=== PATIENT | female | born 1970 | race Hispanic/Latino ===

== ENCOUNTER 2018-09-06 16:05 | Observation (INO) | payer MEDICAID ==
[~2018-09-06] VITALS: Ht 154.9 cm; Wt 81.1 kg
[2018-09-06 17:19] LABS: BASOPHILS % (AUTO) 1.7 % (0.0-5.0); HEMATOCRIT 36.7 % (36-48); LYMPHOCYTES % (AUTO) 29.8 % (21.0-51.0); MEAN CORPUSCULAR HEMOGLOBIN 31.2 pg (27.0-33.0); MEAN CORPUSCULAR VOLUME 91.9 fL (79-99); MONOCYTES % (AUTO) 6.5 % (3.0-13.0); PLATELET COUNT (AUTO) 231 K/uL (130-400); RED CELL DISTRIBUTION WIDTH 14.7 % (11.0-15.5); WHITE BLOOD COUNT (AUTO) 6.1 K/uL (4.8-10.8)
[2018-09-06 17:29] LABS: CREATININE 1.2 mg/dL (0.5-1.5)
[2018-09-06 17:31] LABS: PARTIAL THROMBOPLASTIN TIME 76.2 SEC (26.3-35.5)
[2018-09-06 17:40] LABS: ALBUMIN 4.2 g/dL (3.5-5.0); BILIRUBIN,TOTAL 0.8 mg/dL (0.2-1.0)
[2018-09-06 17:43] LABS: INR > 7.00 (0.85-1.15); PROTHROMBIN TIME > 63.0 SEC (9.6-11.6)
[2018-09-06] MEDS ORDERED: SODIUM CHLORIDE 0.9% 10 ML VIAL IVP PRN (21:00)
[2018-09-06] MEDS: PHYTONADIONE 10 MG/1 ML AMP SQ SCH (21:00)
[2018-09-06] MEDS ORDERED: PHYTONADIONE 10 MG/1 ML AMP ONE (22:48)
[2018-09-06 23:20] VITALS: BP 135/74
[2018-09-07] MEDS ORDERED: DIGO125T87 PO (00:57)
[2018-09-07] MEDS ORDERED: WARF-57 PO (00:57)
[2018-09-07] MEDS ORDERED: POTA-79 PO (00:57)
[2018-09-07] MEDS ORDERED: DIVA250T45 PO (00:57)
[2018-09-07] MEDS ORDERED: SPIR25TA6 PO (00:57)
[2018-09-07] MEDS ORDERED: METF-444 PO (00:57)
[2018-09-07] MEDS ORDERED: WARF2.5T85 PO (00:57)
[2018-09-07] MEDS ORDERED: PREG75 PO (00:57)
[2018-09-07] MEDS ORDERED: FURO40TA5 PO (00:57)
[2018-09-07] MEDS ORDERED: RANO10003 PO (00:57)
[2018-09-07] MEDS ORDERED: AMIT50TA3 PO (00:57)
[2018-09-07] MEDS ORDERED: CARV6.25 PO (00:57)
[2018-09-07] MEDS ORDERED: LEVO100T12 PO (00:57)
[2018-09-07] MEDS ORDERED: atorvastatin (00:57)
[2018-09-07] MEDS ORDERED: ALPR-410 PO (00:57)
[2018-09-07] MEDS ORDERED: LISI2.5T2 PO (00:57)
[2018-09-07 04:00] VITALS: BP 128/56
[2018-09-07 05:59] LABS: BASOPHILS % (AUTO) 0.2 % (0.0-5.0); EOSINOPHILS % (AUTO) 2.5 % (0.0-8.0); HEMATOCRIT 33.4 % (36-48); LYMPHOCYTES % (AUTO) 36.2 % (21.0-51.0); MEAN CORPUSCULAR HEMOGLOBIN 31.6 pg (27.0-33.0); MEAN CORPUSCULAR HGB CONC 34.6 g/dL (32.0-36.0); MEAN CORPUSCULAR VOLUME 91.1 fL (79-99); NEUTROPHILS % (AUTO) 51.1 % (40.0-77.0); PLATELET COUNT (AUTO) 198 K/uL (130-400); RED BLOOD CELL COUNT(AUTO) 3.66 MIL/uL (4.00-5.50); RED CELL DISTRIBUTION WIDTH 14.7 % (11.0-15.5)
[2018-09-07 06:13] LABS: PARTIAL THROMBOPLASTIN TIME 80.4 SEC (26.3-35.5)
[2018-09-07 07:30] VITALS: BP 119/61
[2018-09-07 07:52] LABS: PROTHROMBIN TIME > 63.0 SEC (9.6-11.6)
[2018-09-07 07:53] LABS: INR > 7.00 (0.85-1.15)
[2018-09-07 11:00] VITALS: BP 122/66
--- NOTE | 2018-09-07 11:33 | NUR ---
Nutrition Notification Patient with Iatrogenic coagulopathy, Warfarin medication. Patient with Heart Healthy diet. Patient stated dislike food served at breakfast time. Patient also reported feelings of nausea at time of visit. RN was notified. Patient did express hungry for lunch. Patient with warfarin medication. RD provided food and drug interaction as well as diet education. Patient verbalized understanding. Patient LBM 09/06/18. Patient monitored labs: Cl 99, GFR 51, Glu 154, Alb 4.2. RD to continue to monitor. Please notify RD as nutritional concerns arise. Thank you. Addendum: 09/07/18 at [address] Amended: Links added.
--- NOTE | 2018-09-07 11:37 | NUR ---
Diet Education RD provided Vitamin K Foods and Coumadin Diet education. Patient accepted handouts and education. Patient verbalized understanding. Patient with no questions at this time. RD to follow up. Addendum: 09/07/18 at [address] Amended: Links added.
--- NOTE | 2018-09-07 12:29 | NUR ---
INITIAL: Met with pt this am to discuss dcp. Pt lives alone, uses a rollator for ambulation. ADLs w assist. Pt has provider services 29hr/week. She has at home a chair, wc and bsc if needed. Per pt her sister provides transportation where needed. Pt mentions she feels safe and comfortable to return home at ar. CM to continue to follow and wait for Md recommendations. Addendum: 09/07/18 at 1231 by BRIAN HA Amended: Links added.
[2018-09-07 16:00] VITALS: BP 124/55
[2018-09-07 19:00] VITALS: BP 117/62
[2018-09-07] MEDS: PHYTONADIONE 10 MG/1 ML AMP SQ SCH (20:04)
[2018-09-08] VITALS: BP 129/68
[2018-09-08 04:00] VITALS: BP 125/65
[2018-09-08 05:57] LABS: INR 1.96 (0.85-1.15); PROTHROMBIN TIME 20.3 SEC (9.6-11.6)
[2018-09-08] MEDS ORDERED: WARF2.5T85 PO (06:53)
[2018-09-08 07:00] VITALS: BP 123/74
[2018-09-08] MEDS ORDERED: PREGABALIN 75 MG CAPSULE PO PRN (07:00)
[2018-09-08] MEDS ORDERED: LEVOTHYROXINE 100 MCG TABLET PO SCH (07:30)
[2018-09-08] MEDS ORDERED: AMITRIPTYLINE HCL 25 MG TABLET PO SCH (07:30)
[2018-09-08] MEDS ORDERED: METFORMIN HCL 500 MG TABLET PO SCH (08:00)
[2018-09-08] MEDS: POTASSIUM CHLORIDE 20 MEQ ERTAB PO SCH ×2 (08:49→12:11)
[2018-09-08] MEDS: PHYTONADIONE 10 MG/1 ML AMP SQ SCH (08:50)
[2018-09-08] MEDS ORDERED: RANOLAZINE 500 MG TAB.SR.12H PO SCH (09:00)
[2018-09-08] MEDS ORDERED: SPIRONOLACTONE 25 MG TAB PO SCH (09:00)
[2018-09-08] MEDS ORDERED: LISINOPRIL 2.5 MG TABLET PO SCH (09:00)
[2018-09-08] MEDS ORDERED: FUROSEMIDE 40 MG TABLET PO SCH (09:00)
[2018-09-08] MEDS ORDERED: DIGOXIN 125 MCG TABLET PO SCH (09:00)
[2018-09-08] MEDS ORDERED: CARVEDILOL 6.25 MG TABLET PO SCH (09:00)
[2018-09-08] MEDS ORDERED: DIVALPROEX SODIUM 250 MG TABLET.DR PO SCH (09:00)
[2018-09-08] MEDS ORDERED: ALPRAZOLAM 0.5 MG TABLET PO SCH (09:00)
[2018-09-08 11:00] VITALS: BP 117/67
--- NOTE | 2018-09-08 13:03 | NUR ---
PT D/C Pt d/c home safely, able to communicate appropriately, no deficit noted, educated on warfarin, ask to follow up with Dr. Trejo at the [facility] for her PT/INR lab values routinely, pt acknowledge and verbalized understanding, all questions and concerns addressed, IV taken out, no complication noted, pt escorted down the elevator and transport provided by family member.
[2018-09-08] MEDS ORDERED: WARFARIN SODIUM 2.5 MG TAB PO SCH (16:00)
== END 2018-09-08 13:05 | disposition home or self-care (01) ==
LOC: EDH 16:05 → EDHIP 16:06 → 3BH 21:50
PROVIDERS: ADMIT Internal Medicine; ATTEND Internal Medicine
DX: D68.9 Coagulation defect, unspecified (principal); T45.515A Adverse effect of anticoagulants, initial encounter; G43.909 Migraine, unspecified, not intractable, without status migrainosus; E03.9 Hypothyroidism, unspecified; I10 Essential (primary) hypertension; I25.10 Atherosclerotic heart disease of native coronary artery without angina pectoris; I25.5 Ischemic cardiomyopathy; E11.9 Type 2 diabetes mellitus without complications; E78.5 Hyperlipidemia, unspecified; Y92.89 Other specified places as the place of occurrence of the external cause; Z86.73 Personal history of transient ischemic attack (TIA), and cerebral infarction without residual deficits; Z95.1 Presence of aortocoronary bypass graft; Z79.01 Long term (current) use of anticoagulants
CPT/HCPCS: 36415 ×3; 70450; 80053; 82550; 82948 ×2; 84484; 85025 ×2; 85610 ×3; 85730 ×3; 93005; 97039 ×4; 97116; 97161; 99284; G0378 ×45; G8978; G8979; G8981; G8982; J3430 ×2

== ENCOUNTER → 2023-08-02 | Outpatient (CLI) | payer MEDICAID ==
[~2023-08-02] MED LIST: ALPR-410 PO; AMIT50TA3 PO; CARV6.25 PO; DIGO125T71 PO; DIVA250T45 PO; FURO40TA5 PO; LEVO100T12 PO; LISI2.5T13 PO; METF-444 PO; POTA-364 PO; PREG75 PO; RANO10003 PO; SPIR25TA6 PO; WARF2.5T85 PO; atorvastatin
== END | disposition home or self-care (01) ==
LOC: SHCH 08:24
PROVIDERS: ATTEND Internal Medicine Cardiovascular Disease
DX: I07.1 Rheumatic tricuspid insufficiency (principal); I11.9 Hypertensive heart disease without heart failure; I25.10 Atherosclerotic heart disease of native coronary artery without angina pectoris; E78.5 Hyperlipidemia, unspecified; Z95.1 Presence of aortocoronary bypass graft; Z95.2 Presence of prosthetic heart valve; Z95.810 Presence of automatic (implantable) cardiac defibrillator
CPT/HCPCS: 93306

== ENCOUNTER → 2023-11-26 | Outpatient (CLI) | payer MEDICAID ==
[2023-11-26 16:27] LABS: INR 1.7 (0.85-1.15); PROTHROMBIN TIME 19.3 SEC (9.6-11.6)
== END | disposition home or self-care (01) ==
LOC: LAB 13:42
PROVIDERS: ATTEND Internal Medicine Cardiovascular Disease
DX: Z79.01 Long term (current) use of anticoagulants (principal); Z79.02 Long term (current) use of antithrombotics/antiplatelets
CPT/HCPCS: 36415; 85610

== ENCOUNTER → 2023-12-03 | Outpatient (CLI) | payer MEDICAID ==
[2023-12-03 17:49] LABS: INR 2.1 (0.85-1.15); PROTHROMBIN TIME 21.3 SEC (9.6-11.6)
== END | disposition home or self-care (01) ==
LOC: LAB 11:51
PROVIDERS: ATTEND Internal Medicine Cardiovascular Disease
DX: Z79.01 Long term (current) use of anticoagulants (principal)
CPT/HCPCS: 36415; 85610

== ENCOUNTER → 2023-12-06 | Outpatient (CLI) | payer MEDICAID ==
[2023-12-06 12:23] LABS: INR 1.97 (0.85-1.15); PROTHROMBIN TIME 20.2 SEC (9.6-11.6)
== END | disposition home or self-care (01) ==
LOC: LAB 09:30
PROVIDERS: ATTEND Internal Medicine Cardiovascular Disease
DX: I48.0 Paroxysmal atrial fibrillation (principal); Z95.2 Presence of prosthetic heart valve
CPT/HCPCS: 36415; 85610

== ENCOUNTER → 2024-01-04 | Outpatient (CLI) | payer MEDICAID | END | disposition home or self-care (01) | LOC: SHCH 13:34 | PROVIDERS: ATTEND Internal Medicine Cardiovascular Disease | DX: I70.203 Unspecified atherosclerosis of native arteries of extremities, bilateral legs (principal); I87.2 Venous insufficiency (chronic) (peripheral); I87.1 Compression of vein | CPT/HCPCS: 93925; 93970 ==

== ENCOUNTER → 2024-06-17 | Outpatient (CLI) | payer MEDICAID ==
--- NOTE | 2024-06-17 09:38 | HMCIMG ---
US ABDOMINAL COMPLETE HISTORY: Pericolic COMPARISON: None TECHNIQUE: Multiple transverse and longitudinal ultrasound images of the abdomen were obtained. FINDINGS: Abdominal aorta and inferior vena cava are unremarkable. The visualized portion of the pancreas is within normal limits. Liver measures 19 cm. Liver is echogenic consistent with liver parenchymal disease. No gallstone is seen. Common duct measures 5 mm. No evidence of gallbladder wall thickening is seen. Both kidneys are seen. Right kidney measures 12 x 4.4 x 4.1 cm. Left kidney measures 11.3 x 5 x 4.5 cm. No hydronephrosis is seen of the both kidneys. The spleen is grossly unremarkable. IMPRESSION: 1. No gallstone or ductal dilatation is seen. 2. No hydronephrosis is seen.
== END | disposition home or self-care (01) ==
LOC: RAH 08:54
PROVIDERS: ATTEND Internal Medicine
DX: K80.50 Calculus of bile duct without cholangitis or cholecystitis without obstruction (principal)
CPT/HCPCS: 76700

== ENCOUNTER → 2024-08-12 | Outpatient (CLI) | payer MEDICAID ==
[~2024-08-12] MED LIST changes: +ATOR40TA69 PO; +BUSP5TAB3 PO; +CELE-125 PO; +CETI10TA87 PO; +DIVA-76 PO; +LEVO100C4 PO; +METO-408 PO; +NITR0.4T50 SL; +OMEP40CA21 PO; +POTA-202 PO; +RANO10005 PO; +RANO500T6 PO; +WARF3TAB59 PO
[2024-08-12 16:19] LABS: INR 1.01 (0.85-1.15); PROTHROMBIN TIME 10.7 SEC (9.6-11.6)
== END | disposition home or self-care (01) ==
LOC: LAB 11:42
PROVIDERS: ATTEND Internal Medicine Cardiovascular Disease
DX: I48.0 Paroxysmal atrial fibrillation (principal); Z95.2 Presence of prosthetic heart valve
CPT/HCPCS: 36415; 85610

== ENCOUNTER 2024-08-13 12:08 | Inpatient (IN) | payer MEDICAID ==
[~2024-08-13] VITALS: Ht 154.9 cm; Wt 70.3 kg
[~2024-08-13 12:08] MED LIST changes: -ATOR40TA69 PO; -BUSP5TAB3 PO; -CELE-125 PO; -CETI10TA87 PO; -DIVA-76 PO; -LEVO100C4 PO; -METO-408 PO; -NITR0.4T50 SL; -OMEP40CA21 PO; -POTA-202 PO; -RANO10005 PO; -RANO500T6 PO; -WARF3TAB59 PO
--- NOTE | 2024-08-13 12:18 | ERN ---
ED Note History of Present Illness Stated Complaint: SENT BY PHY Time Seen by MD: 12:09 Dictation: PATIENT IS A 54-YEAR-OLD FEMALE HERE WITH A HISTORY OF MECHANICAL VALVE REPLACEMENT AND SUBTHERAPEUTIC ON HER COUMADIN. PATIENT WAS SENT FOR PATIENT TO BE PLACED ON HEPARIN AND ADMITTED TO THE HOSPITAL. PATIENT OF DR. VILLALOBOS/CARDIOLOGY Allergies: Coded Allergies: niacin (Unverified Allergy, Unknown, 09/06/18) Home Meds Reported Medications Nitroglycerin (Nitroglycerin) 0.4 Mg Tab.subl, 1 TAB SL AD PRN for CHEST PAIN, #25 TAB 0 Refills 1st sign of attack; may repeat every 5 mins; if pain persists after 3 in 15 m in, medical attention is recommended 08/14/24 Ranolazine (Ranolazine ER) 500 Mg Tab.er.12h, 1 TAB PO BID for 30 Days, #60 TAB 0 Refills 08/14/24 Digoxin (Digoxin) 125 Mcg (0.125 Mg) Tablet, 1 TAB PO DAILY for 30 Days, #30 TAB 0 Refills 08/13/24 Buspirone HCl (Buspirone HCl) 5 Mg Tablet, 1 TAB PO BID for 30 Days, #60 TAB 0 Refills 25 Potassium Chloride (Potassium Chloride) 20 Meq Tab.er.prt, 1 TAB PO DAILY for 30 Days, #30 TAB 0 Refills 25 Cetirizine HCl (Cetirizine HCl) 10 Mg Tab.chew, 1 TAB PO HS for allergy symptoms for 30 Days, #30 TAB 0 Refills 25 Divalproex Sodium (Divalproex Sodium) 250 Mg Tablet.dr, 1 TAB PO BID for 30 Days, #60 TAB 0 Refills 08/13/24 Omeprazole (Omeprazole) 40 Mg Capsule.dr, 1 CAP PO DAILY for 30 Days, #30 CAP 0 Refills 08/13/24 Metoprolol Succinate (Metoprolol Succinate) 25 Mg Tab.er.24h, 1 TAB PO BID for 30 Days, #30 TAB 0 Refills 25 Celecoxib (Celecoxib) 200 Mg Capsule, 1 CAP PO BID for pain for 30 Days, #30 CAP 0 Refills 08/13/24 Ranolazine (Ranolazine ER) 1,000 Mg Tab.er.12h, 1 TAB PO BID for 30 Days, #60 TAB 0 Refills 08/13/24 Lisinopril (Lisinopril) 2.5 Mg Tablet, 1 TAB PO DAILY for 30 Days, #30 TAB 0 Refills 08/13/24 Spironolactone (Spironolactone) 25 Mg Tablet, 1 TAB PO BID for 30 Days, #30 TAB 0 Refills 08/13/24 Levothyroxine Sodium (Levothyroxine) 100 Mcg Capsule, 1 CAP PO DAILY for 30 Days, #30 CAP 0 Refills 08/13/24 Alprazolam (Alprazolam) 0.5 Mg Tab.rapdis, 1 TAB PO TID for 30 Days, #30 TAB 0 Refills 08/13/24 Atorvastatin Calcium (LIPITOR) 40 Mg Tablet, 1 TAB PO DAILY for 30 Days, #30 TAB 0 Refills 08/13/24 Furosemide (Furosemide) 40 Mg Tablet, 1 TAB PO BID for 30 Days, #30 TAB 0 Refills 08/13/24 Warfarin Sodium (Warfarin Sodium) 3 Mg Tablet, 1 TAB PO DAILY for 30 Days, #30 TAB 0 Refills 08/13/24 Warfarin Sodium (Warfarin Sodium) 2.5 Mg Tablet, 2.5 MG PO DAILY, TAB 09/08/18 [atorvastatin] No Conflict Check 09/07/18 Potassium Chloride (Potassium Chloride) 20 Meq Tablet.er, 20 MEQ PO TID, TAB 09/07/18 Spironolactone (Spironolactone) 25 Mg Tablet, 25 MG PO BID, TAB 09/07/18 Carvedilol (Carvedilol) 6.25 Mg Tablet, 6.25 MG PO BID, TAB 09/07/18 Levothyroxine Sodium (Levothyroxine Sodium) 100 Mcg Tablet, 100 MCG PO ACBKFST, TAB 09/07/18 Alprazolam (Alprazolam) 0.5 Mg Tab.rapdis, 0.5 MG PO TID, TAB 09/07/18 Metformin HCl (Metformin HCl) 500 Mg Tablet, 1000 MG PO BID, TAB 09/07/18 Digoxin (Digoxin) 125 Mcg Tablet, 125 MCG PO DAILY, TAB 09/07/18 Divalproex Sodium (Divalproex Sodium ER) 250 Mg Tab.er.24h, 250 MG PO TID, TAB 3/31/19 Amitriptyline HCl (Amitriptyline HCl) 50 Mg Tablet, 50 MG PO BIDAC, TAB 09/07/18 Furosemide (Furosemide) 40 Mg Tablet, 40 MG PO BID, TAB 09/07/18 Lisinopril (Lisinopril) 2.5 Mg Tablet, 2.5 MG PO DAILY, TAB 09/07/18 Pregabalin (Lyrica) 75 Mg Cap, 75 MG PO BID PRN for PAIN LEVEL 1 TO 5, CAP 09/07/18 Ranolazine (Ranexa) 1,000 Mg Tab.er.12h, 1000 MG PO BID, TAB 09/07/18 Past Medical History History: Not Applicable RN Note Reviewed/Agreed w/PFSH: Yes Review of System Dictation CONSTITUTIONAL: NEGATIVE EXCEPT FOR HPI HEAD/FACE: NEGATIVE EXCEPT FOR HPI EENT: NEGATIVE EXCEPT FOR HPI RESPIRATORY: NEGATIVE EXCEPT FOR HPI GASTROINTESTINAL/ABDOMINAL: NEGATIVE EXCEPT FOR HPI GENITOURINARY: NEGATIVE EXCEPT FOR HPI MUSCULOSKELETAL: NEGATIVE EXCEPT FOR HPI INTEGUMENTARY: NEGATIVE EXCEPT FOR HPI NEUROLOGICAL/PSYCH: NEGATIVE EXCEPT FOR HPI HEMATOLOGIC/LYMPHATIC: NEGATIVE EXCEPT FOR HPI ALL SYSTEMS NEGATIVE, EXCEPT NOTED ABOVE. 13 POINT REVIEW OF SYSTEMS ASSESSED AND ALL NEGATIVE EXCEPT FOR ABOVE. Initial Vital Sign VS Vital Signs Date Time Temp Pulse Resp B/P (MAP) Pulse Ox O2 Delivery O2 Flow Rate FiO2 08/13/24 12:30 98.1 99 20 112/67 96 Room Air 0 08/13/24 14:18 21 Physical Exam Dictation VITAL SIGNS REVIEWED GENERAL APPEARANCE: ALERT, ORIENTED X 3, NO ACUTE DISTRESS, WELL DEVELOPED, NOURISHED. HEAD AND FACE: NON-TRAUMATIC. EYES: PERRL, PINK CONJUNCTIVAS, EYELID NO TRAUMA, ANTERIOR CHAMBER WITH ARCUS SENILIS. EARS: PINNAS INTACT AND NO SIGNS OF TRAUMA OR ERYTHEMA EAR CANALS CLEAR AND NO DISCHARGE TM NO ERYTHEMA NOSE: NO DISCHARGE, NO BLEEDING. OROPHARYNX: MOUTH NORMAL, TONGUE PINK, PHARYNX CLEAR,NO ERYTHEMA, TONSILS NO EXUDATES, NO ABSCESSES NOTED, MUCOUS MEMBRANE MOIST NECK: SUPPLE, NON-TENDER, NO THYROMEGALY, NO MASSES, NO JVD, NO BRUITS BREAST:DEFERRED CHEST:NO TENDERNESS, NO CREPITUS, NO PARADOXICAL MOVEMENT, NO RETRACTIONS LUNGS:CLEAR, WELL-VENTILATED, SYMMETRIC, NO RALES, NO WHEEZING, NO RHONCHI, NO STRIDOR, GOOD BREATH SOUNDS BILATERALLY HEART: REGULAR RATE, REGULAR RHYTHM, NO MURMUR, NO GALLOPS VASCULAR: NO PERIPHERAL EDEMA, ABDOMEN: SOFT, POSITIVE BOWEL SOUNDS, NONDISTENDED, NO GUARDING, NONTENDER, NO REBOUND, NO MASSES NO HEPATOMEGALY, NO SPLENOMEGALY, NO BAZAN'S SIGN, NO HERNIAS. RECTAL: DEFERRED GENITAL: DEFERRED NEUROLOGICAL: NORMAL SPEECH, MOTOR FUNCTION INTACT, SENSORY FUNCTION INTACT MUSCULOSKELETAL: NECK NONTENDER, FULL RANGE OF MOTION, BACK NONTENDER, FULL RANGE OF MOTION, EXTREMITIES: NONTENDER, FULL RANGE OF MOTION SKIN: COLOR PINK, DRY, NO TURGOR, NO RASH, NO LACERATIONS, NO ABRASIONS, NO CONTUSIONS. LYMPHATIC: DEFERRED Results (Laboratory/Radiology) Laboratory/Radiology Laboratory Tests Test 08/13/24 21:13 08/14/24 03:27 08/14/24 07:02 08/14/24 09:21 Activated Partial Thromboplast Time 69.3 SEC (26.3-35.5) #H 75.2 SEC (26.3-35.5) #H 70.6 SEC (26.3-35.5) H Prothrombin Time 12.3 SEC (9.6-11.6) H Prothromb Time International Ratio 1.18 (0.85-1.15) H White Blood Count 5.1 K/uL (4.8-10.8) Red Blood Count 4.04 MIL/uL (4.00-5.50) Hemoglobin 12.1 g/dL (12.0-16.0) Hematocrit 36.5 % (36-48) Mean Corpuscular Volume 90.3 fL (79-99) Mean Corpuscular Hemoglobin 30.0 pg (27.0-33.0) Mean Corpuscular Hemoglobin Concent 33.2 g/dL (32.0-36.0) Red Cell Distribution Width 13.4 % (11.0-15.5) Platelet Count 213 K/uL (130-400) Mean Platelet Volume 11.7 fL (7.5-10.5) H Immature Granulocyte % (Auto) 0.6 % (0-1) Neutrophils (%) (Auto) 45.5 % (40.0-77.0) Lymphocytes (%) (Auto) 40.0 % (21.0-51.0) Monocytes (%) (Auto) 10.0 % (3.0-13.0) Eosinophils (%) (Auto) 3.3 % (0.0-8.0) Basophils (%) (Auto) 0.6 % (0.0-5.0) Neutrophils # (Auto) 2.3 K/uL (1.8-7.7) Lymphocytes # (Auto) 2.0 K/uL (1.0-4.8) Monocytes # (Auto) 0.5 K/uL (0.1-1.0) Eosinophils # (Auto) 0.17 K/uL (0.00-0.70) Basophils # (Auto) 0.03 K/uL (0.00-0.20) Absolute Immature Granulocyte (auto 0.03 K/uL (0-1) Nucleated Red Blood Cells 0.0 % (0.0-0.19) Sodium Level 139 mmol/L (136-145) Potassium Level 3.4 mmol/L (3.5-5.1) L Chloride Level 102 mmol/L (101-111) Carbon Dioxide Level 30 mmol/L (21-32) Blood Urea Nitrogen 12 mg/dL (7-18) Creatinine 0.9 mg/dL (0.5-1.0) Glomerular Filtration Rate Calc 76 mL/min (>90) Random Glucose 120 mg/dL (70-105) H Total Calcium 8.8 mg/dL (8.5-10.1) Total Bilirubin 1.4 mg/dL (0.2-1.0) H Aspartate Amino Transf (AST/SGOT) 21 U/L (10-37) Alanine Aminotransferase (ALT/SGPT) 30 U/L (12-78) Alkaline Phosphatase 86 U/L (50-136) Total Protein 8.0 g/dL (6.0-8.3) Albumin 3.7 g/dL (3.5-5.0) Test 08/14/24 15:14 08/15/24 03:33 08/15/24 09:58 08/15/24 11:09 Prothrombin Time 11.9 SEC (9.6-11.6) H 13.7 SEC (9.6-11.6) H Prothromb Time International Ratio 1.14 (0.85-1.15) 1.33 (0.85-1.15) H Activated Partial Thromboplast Time 56.7 SEC (26.3-35.5) H 85.5 SEC (26.3-35.5) #H 76.3 SEC (26.3-35.5) H Digoxin Level 0.44 ng/mL (0.50-2.00) L Whole Blood Glucose 146 MG/DL (70-110) H Test 08/15/24 15:40 08/15/24 15:58 08/15/24 22:44 08/16/24 02:42 Whole Blood Glucose 112 MG/DL (70-110) H Activated Partial Thromboplast Time 72.9 SEC (26.3-35.5) H 55.1 SEC (26.3-35.5) H 69.6 SEC (26.3-35.5) #H White Blood Count 4.7 K/uL (4.8-10.8) L Red Blood Count 4.04 MIL/uL (4.00-5.50) Hemoglobin 12.3 g/dL (12.0-16.0) Hematocrit 36.0 % (36-48) Mean Corpuscular Volume 89.1 fL (79-99) Mean Corpuscular Hemoglobin 30.4 pg (27.0-33.0) Mean Corpuscular Hemoglobin Concent 34.2 g/dL (32.0-36.0) Red Cell Distribution Width 13.2 % (11.0-15.5) Platelet Count 194 K/uL (130-400) Mean Platelet Volume 12.1 fL (7.5-10.5) H Nucleated Red Blood Cells 0.0 % (0.0-0.19) Prothrombin Time 23.6 SEC (9.6-11.6) #H Prothromb Time International Ratio 2.43 (0.85-1.15) H Sodium Level 134 mmol/L (136-145) L Potassium Level 3.4 mmol/L (3.5-5.1) L Chloride Level 100 mmol/L (101-111) L Carbon Dioxide Level 29 mmol/L (21-32) Blood Urea Nitrogen 15 mg/dL (7-18) Creatinine 1.0 mg/dL (0.5-1.0) Glomerular Filtration Rate Calc 67 mL/min (>90) Random Glucose 119 mg/dL (70-105) H Hemoglobin A1c 6.3 % (4.0-6.0) H Estimated Average Glucose (eAG) 134 mg/dL (70-126) H Total Calcium 9.3 mg/dL (8.5-10.1) Magnesium Level 1.90 mg/dL (1.80-2.40) Test 08/16/24 05:04 08/16/24 11:32 08/16/24 15:42 Whole Blood Glucose 126 MG/DL (70-110) H 121 MG/DL (70-110) H 143 MG/DL (70-110) H Labs Reviewed?: Yes EKG Comment: AV PACED RHYTHM/HEART RATE 8 ED Course ED Course Orders Procedure Category Date Status Time Partial LAB 08/13/24 Complete Thromboplastin Time 21:09 Acetaminophen 325 Tab PHA 08/13/24 Complete (Tylenol 325mg Tab 22:00 Cbc With Differential LAB 08/14/24 Complete 04:00 Partial LAB 08/14/24 Complete Thromboplastin Time 09:00 Buspirone Hcl (Buspar) PHA 08/14/24 In Process 09:00 Digoxin 125mcg PHA 08/14/24 In Process (Lanoxin 125mcg) 09:00 Divalproex Sodium 250 PHA 08/14/24 In Process Mg Tab (Depakote 2 09:00 Furosemide 40 Mg PHA 08/14/24 In Process Tablet (Lasix 40mg 09:00 Lisinopril 2.5mg PHA 08/14/24 In Process (Prinivil 2.5mg) 09:00 Metoprolol Succinate PHA 08/14/24 In Process (Toprol Xl) 09:00 Potassium Chloride PHA 08/14/24 In Process 20meq Er (K-Dur/Klor- 09:00 Spironolactone 25mg PHA 08/14/24 In Process (Aldactone 25mg) 09:00 Alprazolam 1mg (Xanax PHA 08/14/24 In Process 1mg) 06:00 Cetirizine Hcl 5 Mg PHA 08/14/24 In Process Tablet (Zyrtec 5 Mg 21:00 Levothyroxine 100 Mcg PHA 08/14/24 In Process Tablet (Synthroid 06:30 Pantoprazole 40mg Tab PHA 08/14/24 In Process (Protonix 40mg Tab 09:00 Ranolazine 500 Mg PHA 08/14/24 In Process Tab.Sr.12h (Ranexa) 09:00 Nitroglycerin 0.4mg PHA 08/14/24 In Process Sl Tab (Nitrostat) 06:00 Warfarin Sodium PHA 08/14/24 Complete (Coumadin) 08:30 Warfarin Sodium PHA 08/14/24 In Process (Coumadin) 16:00 Cardiology Consult CONPHYSVC 08/14/24 Transmitted 08:00 Pt And Ptt LAB 08/14/24 Complete 15:08 Pt And Ptt LAB 08/15/24 Complete 04:00 Partial LAB 08/15/24 Complete Thromboplastin Time 10:00 Partial LAB 08/15/24 Complete Thromboplastin Time 16:00 Prothrombin Time With LAB 08/16/24 Complete INR 09:00 Prothrombin Time With LAB 08/17/24 Verified INR 09:00 Prothrombin Time With LAB 08/18/24 Verified INR 09:00 Prothrombin Time With LAB 08/19/24 Verified INR 09:00 Prothrombin Time With LAB 08/20/24 Verified INR 09:00 Cbc Without LAB 08/16/24 Complete Differential 09:00 Cbc Without LAB 08/17/24 Verified Differential 09:00 Cbc Without LAB 08/18/24 Verified Differential 09:00 Cbc Without LAB 08/19/24 Verified Differential 09:00 Cbc Without LAB 08/20/24 Verified Differential 09:00 Basic Metabolic Panel LAB 08/16/24 Complete 09:00 Basic Metabolic Panel LAB 08/17/24 Verified 09:00 Basic Metabolic Panel LAB 08/18/24 Verified 09:00 Basic Metabolic Panel LAB 08/19/24 Verified 09:00 Basic Metabolic Panel LAB 08/20/24 Verified 09:00 Magnesium LAB 08/17/24 Verified 09:00 Magnesium LAB 08/18/24 Verified 09:00 Magnesium LAB 08/19/24 Verified 09:00 Magnesium LAB 08/20/24 Verified 09:00 Digoxin LAB 08/15/24 Complete 14:14 Atorvastatin 40mg PHA 08/15/24 In Process (Lipitor 40mg) 21:00 Aspirin 81mg Chew Tab PHA 08/16/24 In Process (Aspirin 81mg Chew 09:00 Hemoglobin A1c LAB 08/16/24 Complete 04:00 Partial LAB 08/15/24 Complete Thromboplastin Time 22:00 Acetaminophen 325 Tab PHA 08/15/24 Complete (Tylenol 325mg Tab 20:34 Acetaminophen 325 Tab PHA 08/15/24 In Process (Tylenol 325mg Tab 21:00 Partial LAB 08/16/24 Complete Thromboplastin Time 04:00 Magnesium LAB 08/16/24 Complete 09:00 Partial LAB 08/17/24 Verified Thromboplastin Time 03:00 Vital Signs Date Time Temp Pulse Resp B/P (MAP) Pulse Ox O2 Delivery O2 Flow Rate FiO2 08/16/24 16:54 98.1 81 16 102/52 99 Room Air 08/16/24 12:10 98.1 71 16 171/81 98 Room Air 08/16/24 10:24 80 08/16/24 09:24 78 08/16/24 09:22 95 Room Air* 0 08/16/24 07:54 97.9 78 16 101/60 95 Room Air 08/16/24 03:12 97.3 75 20 107/69 96 Room Air 08/15/24 23:41 98.4 86 20 111/59 95 Room Air 08/15/24 20:00 96 Room Air* 0 08/15/24 19:48 98.8 91 20 107/58 96 Room Air 08/15/24 16:14 97.9 87 16 121/58 95 Room Air 08/15/24 11:54 98.1 88 16 123/61 95 Room Air 08/15/24 10:28 80 08/15/24 09:28 69 08/15/24 07:50 96 Room Air* 0 08/15/24 07:49 98.4 69 16 119/57 96 Room Air 08/15/24 03:43 98.1 73 20 117/63 96 Room Air 08/14/24 23:36 98.8 74 20 106/55 95 Room Air 08/14/24 22:00 20 Room Air* 0 08/14/24 21:03 96 Room Air* 0 08/14/24 20:50 99.1 96 20 115/75 20 Room Air 08/14/24 20:00 97.5 96 16 124/63 96 Room Air 08/14/24 19:08 98.1 90 15 110/59 96 Room Air* 0 08/14/24 14:59 98.1 90 15 105/45 96 Room Air* 0 08/14/24 10:58 89 08/14/24 10:30 98.4 80 16 132/67 96 Room Air* 0 08/14/24 09:20 80 08/14/24 06:32 79 16 106/58 96 Room Air* 0 08/14/24 05:21 81 16 114/66 95 Room Air* 0 08/14/24 03:19 82 16 98/42 96 Room Air* 0 08/14/24 00:56 87 16 103/56 95 Room Air* 0 08/13/24 23:02 98.4 92 18 112/55 96 Room Air* 0 08/13/24 21:59 89 16 104/51 95 Room Air* 0 08/13/24 19:30 98 16 122/51 96 Room Air* 0 08/13/24 18:54 98.1 92 14 122/51 96 Room Air* 0 21 1.05 1440 PATIENT WILL BE ADMITTED FOR SUBTHERAPEUTIC INR, 1.05. HEPARIN HAS BEEN INITIATED AND BOLUS GIVEN 1520/DR REDDY CALLED FOR ADMISSION AND HE SAID HE WAS WITH THE PATIENT AND WOULD CALL BACK. 1645/SPOKE WITH DR. REDDY, REVIEWED LABS AND HEPARIN BOLUS WITH DRIP HE AGREED TO ADMIT. HEART Score Response (Comments) Value EKG: Repolarization changes 1 Age: 45-65yrs (+1) 1 Risk Factors: No known risk factors (0) 0 Total 2 Medical Decision Making MDM MEDICAL DISCHARGE MAKING BASED ON ADMISSION FOR SUBTHERAPEUTIC COUMADIN LEVELS. INR 1.05 HEPARIN ADMINISTERED PATIENT AWARE OF ADMISSION DX & DISP Disposition: Inpatient Decision to Admit Time: 14:40 Departure Impression: Primary Impression: Subtherapeutic anticoagulation Additional Impressions: Hypoglycemia, Mechanical heart valve present Condition: Stable Referrals: AARON GAUTHIER MD (PCP) Time of Disposition: 14:40 I have reviewed the case, and I agree with, Diagnosis and Plan I performed the substantive portion of the visit. I have reviewed and personally made and approve the management plan that is documented in the notes by myself or the NORMA. I acknowledge full responsibility for the patient's management plan. KAILA BUNCH NP Aug 13, 2024 12:18 JERALD STEINER MD Aug 16, 2024 18:38
--- NOTE | 2024-08-13 12:38 | EKG ---
[facility] Test Date: 2024-08-13 Test Time: 12:31:33 Pat Name: HEBER DUKE Department: [facility] Room: Gender: F Compliance Vice President: [id number] : 1970 Requested By: KAILA BUNCH Order Number: [id number] Reading MD: Iliana Dahl Measurements Intervals [place] Rate: 87 P: -3 [place]: 35 QRS: 139 QRSD: 113 T: 28 QT: 434 QTc: 522 Interpretive Statements Atrial-sensed ventricular-paced rhythm Compared to ECG 09/06/2018 16:12:33 No significant changes Electronically Signed On 08-13-2024 14:37:06 [employer] by Iliana Dahl Please click the below link to view image of tracing.
[2024-08-13 12:56] LABS: BASOPHILS # (AUTO) 0.01 K/uL (0.00-0.20); BASOPHILS % (AUTO) 0.2 % (0.0-5.0); EOSINOPHILS % (AUTO) 1.8 % (0.0-8.0); HEMATOCRIT 38.5 % (36-48); IMMATURE GRANULOCYTE ABSOLUTE 0.03 K/uL (0-1); LYMPHOCYTES # (AUTO) 2.1 K/uL (1.0-4.8); LYMPHOCYTES % (AUTO) 39.5 % (21.0-51.0); MEAN CORPUSCULAR HEMOGLOBIN 30.1 pg (27.0-33.0); MEAN CORPUSCULAR HGB CONC 32.7 g/dL (32.0-36.0); MEAN CORPUSCULAR VOLUME 91.9 fL (79-99); MONOCYTES # (AUTO) 0.5 K/uL (0.1-1.0); MONOCYTES % (AUTO) 9.2 % (3.0-13.0); NEUTROPHILS # (AUTO) 2.6 K/uL (1.8-7.7); NEUTROPHILS % (AUTO) 48.7 % (40.0-77.0); PLATELET COUNT (AUTO) 228 K/uL (130-400); RED BLOOD CELL COUNT(AUTO) 4.19 MIL/uL (4.00-5.50); RED CELL DISTRIBUTION WIDTH 13.3 % (11.0-15.5); WHITE BLOOD COUNT (AUTO) 5.4 K/uL (4.8-10.8)
[2024-08-13 13:05] LABS: CREATININE 0.9 mg/dL (0.5-1.0); POTASSIUM 4.4 mmol/L (3.5-5.1)
[2024-08-13 14:23] LABS: APPEARANCE,URINE CLOUDY (CLEAR); BILIRUBIN,URINE NEGATIVE (NEGATIVE); COLOR,URINE LIGHT-YELLOW (YELLOW); GLUCOSE, URINE (UA) NEGATIVE (NEGATIVE); KETONES,URINE NEGATIVE (NEGATIVE); LEUKOCYTE ESTERASE ,URINE NEGATIVE Leu/uL (NEGATIVE); NITRATE,URINE NEGATIVE (NEGATIVE); OCCULT BLOOD,URINE NEGATIVE (NEGATIVE); PROTEIN,URINE NEGATIVE (NEGATIVE); UROBILINOGEN,URINE 0.2 mg/dL (0.2-1.0)
[2024-08-13 14:24] LABS: INR 1.07 (0.85-1.15); PROTHROMBIN TIME 11.3 SEC (9.6-11.6)
[2024-08-13 14:26] LABS: PARTIAL THROMBOPLASTIN TIME 25.8 SEC (26.3-35.5)
[2024-08-13 14:26] LABS: ADD UA MICROSCOPIC YES
[2024-08-13 14:28] LABS: BACTERIA,URINE RARE /HPF (None Seen); MUCUS,URINE RARE LPF (None Seen); RBC,URINE 0-1 /HPF (0-1); SQUAMOUS EPITHELIAL CELL,UR FEW /HPF (0-2)
[2024-08-13] MEDS: HEParin 5,000 UNIT VIAL IV ONE (15:30)
[2024-08-13] MEDS: HEParin 25,000 UNITS/250ML D5W 250 ML IV SCH (15:42)
[2024-08-13] MEDS ORDERED: LEVO100C4 PO (16:17)
[2024-08-13] MEDS ORDERED: SPIR25TA6 PO (16:17)
[2024-08-13] MEDS ORDERED: FURO40TA5 PO (16:17)
[2024-08-13] MEDS ORDERED: RANO10005 PO (16:17)
[2024-08-13] MEDS ORDERED: POTA-202 PO (16:17)
[2024-08-13] MEDS ORDERED: DIVA-76 PO (16:17)
[2024-08-13] MEDS ORDERED: OMEP40CA21 PO (16:17)
[2024-08-13] MEDS ORDERED: BUSP5TAB3 PO (16:17)
[2024-08-13] MEDS ORDERED: CETI10TA87 PO (16:17)
[2024-08-13] MEDS ORDERED: METO-408 PO (16:17)
[2024-08-13] MEDS ORDERED: CELE-125 PO (16:17)
[2024-08-13] MEDS ORDERED: WARF3TAB59 PO (16:17)
[2024-08-13] MEDS ORDERED: DIGO125T71 PO (16:17)
[2024-08-13] MEDS ORDERED: ALPR-410 PO (16:17)
[2024-08-13] MEDS ORDERED: LISI2.5T13 PO (16:17)
[2024-08-13] MEDS ORDERED: ATOR40TA69 PO (16:17)
--- NOTE | 2024-08-13 16:17 | NUR ---
MEDICATIONS HAVE BEEN RECONCILED
[2024-08-13] MEDS: acetaMINOPHEN 325 MG TAB PO ONE (22:03)
[2024-08-14 03:47] LABS: INR 1.18 (0.85-1.15); PROTHROMBIN TIME 12.3 SEC (9.6-11.6)
[2024-08-14 03:48] LABS: PARTIAL THROMBOPLASTIN TIME 75.2 SEC (26.3-35.5)
[2024-08-14] MEDS ORDERED: RANO500T6 PO (05:44)
[2024-08-14] MEDS ORDERED: NITR0.4T50 SL (05:48)
[2024-08-14] MEDS ORDERED: NITROGLYCERIN 0.4 MG SL TAB SL PRN (06:00)
[2024-08-14] MEDS: levoTHYROxine 100 MCG TABLET PO SCH (06:01)
[2024-08-14 07:37] LABS: BASOPHILS # (AUTO) 0.03 K/uL (0.00-0.20); BASOPHILS % (AUTO) 0.6 % (0.0-5.0); EOSINOPHILS # (AUTO) 0.17 K/uL (0.00-0.70); EOSINOPHILS % (AUTO) 3.3 % (0.0-8.0); HEMATOCRIT 36.5 % (36-48); IMMATURE GRANULOCYTE ABSOLUTE 0.03 K/uL (0-1); MEAN CORPUSCULAR HGB CONC 33.2 g/dL (32.0-36.0); MEAN CORPUSCULAR VOLUME 90.3 fL (79-99); MONOCYTES # (AUTO) 0.5 K/uL (0.1-1.0); NEUTROPHILS # (AUTO) 2.3 K/uL (1.8-7.7); NEUTROPHILS % (AUTO) 45.5 % (40.0-77.0); PLATELET COUNT (AUTO) 213 K/uL (130-400); RED BLOOD CELL COUNT(AUTO) 4.04 MIL/uL (4.00-5.50); RED CELL DISTRIBUTION WIDTH 13.4 % (11.0-15.5); WHITE BLOOD COUNT (AUTO) 5.1 K/uL (4.8-10.8)
[2024-08-14 07:47] LABS: ALBUMIN 3.7 g/dL (3.5-5.0); BILIRUBIN,TOTAL 1.4 mg/dL (0.2-1.0); CREATININE 0.9 mg/dL (0.5-1.0); POTASSIUM 3.4 mmol/L (3.5-5.1)
--- NOTE | 2024-08-14 08:00 | NUR ---
MD BARRY AT BEDSIDE
--- NOTE | 2024-08-14 09:00 | NUR ---
ANDERSON PA AT BEDSIDE
[2024-08-14] MEDS: RANOLAZINE 500 MG TAB.SR.12H PO SCH (09:17)
[2024-08-14] MEDS: WARFARIN SODIUM 5 MG TAB PO ONE (09:18)
[2024-08-14] MEDS: PoTASSium chloRIDE 20MEQ ER 20 MEQ ERTAB PO SCH (09:18)
[2024-08-14] MEDS: PANTOPrazole 40 MG TAB DR PO SCH (09:18)
[2024-08-14] MEDS: furoSEMIDE 40 MG TABLET PO SCH (09:19)
[2024-08-14] MEDS: metOPROLol sucCINATE 25 MG TAB.SR.24H PO SCH (09:19)
[2024-08-14] MEDS: DIGOxin 125 MCG TABLET PO SCH (09:20)
[2024-08-14] MEDS: divALPRoex SOdium 250 MG TAB PO SCH (09:20)
[2024-08-14] MEDS: LISINOPRIL 2.5 MG TABLET PO SCH (09:20)
[2024-08-14] MEDS: SPIRONOLACTONE 25 MG TAB PO SCH (09:20)
[2024-08-14] MEDS: busPIRone HCL 5 MG TABLET PO SCH (09:20)
--- NOTE | 2024-08-14 12:45 | NUR ---
DCP Patient lives alone in a second floor apartment with a tub. States she is disable, remains independent. receives $175 food assistance. able to complete most ADL's, needs some assistance. has a cane, walker with seat and wheelchair to use as needed. [facility] has a provider from [facility] in [place] for four hours and half. [facility] PCP - Gem Gonzalez MD Pharmacy - [address] Upon discharge, Radha Tillman, Daughter [phone] and assist with care. Addendum: 08/14/24 at 1252 by MELINDA NEWMAN RN CM Amended: Links added.
[2024-08-14] MEDS: WARFARIN SODIUM 5 MG TAB PO SCH (16:30)
[2024-08-14 17:57] LABS: PARTIAL THROMBOPLASTIN TIME 56.7 SEC (26.3-35.5)
[2024-08-14 18:47] LABS: INR 1.14 (0.85-1.15); PROTHROMBIN TIME 11.9 SEC (9.6-11.6)
[2024-08-14 20:00] VITALS: BP 124/63; PULSE 96; RESP 16; TEMP 97.5
[2024-08-14 20:50] VITALS: BP 115/75; PULSE 96; RESP 20; TEMP 99.1
--- NOTE | 2024-08-14 20:52 | NUR ---
Report given to [place].
[2024-08-14] MEDS: ceTIRIzine HCL 5 MG TABLET PO SCH (20:57)
--- NOTE | 2024-08-14 21:02 | CONS ---
CHIEF COMPLAINT: Subtherapeutic INR with mechanical mitral valve. OUTPATIENT DOCTOR: Gem Gonzalez MD OUTPATIENT TELESALES SPECIALIST: Kaiden Trejo MD SOURCE: * The patient is reliable. * Medical record. HISTORY OF PRESENT ILLNESS: The patient is a well-known 54-year-old female with a history of hypertension, dyslipidemia, coronary artery disease with prior CABG and mechanical mitral valve, paroxysmal atrial fibrillation and ischemic cardiomyopathy with a Medtronic ICD. The patient is maintained on Coumadin due to the mechanical mitral valve. Three to four days ago, she ran out of her warfarin. The patient called the office requesting for refills, though there is no documentation of this. She had INR checked yesterday that was 1. Given her prolonged time off warfarin, subtherapeutic INR and potential for catastrophic event, she was sent to the Emergency Room for initiation of heparin drip and Coumadin. The patient is currently in the ER. She feels fairly well. She did complain of some vague chest tightness. No shortness of breath, leg edema, palpitations. The patient is followed by us in the office, last seen 04/2024. She has a history of CABG x2 with mechanical MVR in 2008, followed by a redo in 2009. She has chronic ischemic cardiomyopathy and has a Medtronic ICD. Last echo in 07/2023 revealed an EF of 35%, functioning mitral prosthesis. Last Lexiscan in 2020 revealed anterior and anterolateral infarcts, EF of 54%, mild anterior wall hypokinesis, no reversible ischemia. She has paroxysmal atrial fibrillation also and is maintained on warfarin. REVIEW OF SYSTEMS: No GI, bleeding, fever, cough, nausea or vomiting, unexplained weight changes, diabetes, falls. ALLERGIES: INCLUDE NIACIN. PAST MEDICAL HISTORY: * CABG x2 with mitral ring in 2008, redo CABG with mechanical mitral valve placement in 2009. * Ischemic cardiomyopathy. * Medtronic ICD placement by Dr. Grewal. * 2023 echo, EF 35%, mild to moderate global hypokinesis, functioning mitral bioprosthesis. * Chronic Coumadin anticoagulation, secondary to mechanical MVR. * Paroxysmal atrial fibrillation/flutter. * 2020 Lexiscan with anterior and anterolateral infarct, mild anterior hypokinesis, no reversible ischemia. * Hypothyroidism. * Depression/anxiety. * Dyslipidemia. * Seizure disorder. * Anxiety/depression. * Allergic rhinitis. PAST SURGICAL HISTORY: CABG x2 and mitral ring in 2008, redo CABG with mechanical MVR in 2009. Medtronic ICD placement by Dr. Grewal. SOCIAL HISTORY: Previously smoked, but quit more than 10 years ago. No alcohol abuse. FAMILY HISTORY: Mother had a pacemaker. Father had high blood pressure. PHYSICAL EXAMINATION: GENERAL: Overweight middle-aged female, resting comfortably, no distress. VITAL SIGNS: Temperature 98.1, pulse 90, respirations 15, blood pressure 105/45. HEENT: Hearing intact. No facial asymmetry, nasal discharge or icterus. NECK: Symmetric. Midline trachea. No bruits. CARDIOVASCULAR: Rhythm and rate regular. Mechanical valve sounds noted. No edema. Dorsal pulses 2+ bilaterally. RESPIRATORY: Clear to the bases. No crackles or wheezes. GASTROINTESTINAL: Benign, soft, nontender. MUSCULOSKELETAL: No amputations or deformities. Range of motion grossly normal. SKIN: No ecchymosis or ulcers. Warm to the touch. Some venous stasis discoloration to her lower legs. NEUROLOGIC: No tremors. Speech clear. PSYCHIATRIC: Alert, oriented x 3, cooperative and pleasant, answering all questions appropriately. LABORATORY DATA: CBCs have been unremarkable as have chemistries. INR yesterday was 1.07 and 1.18 today. RADIOLOGY: 2D echo from 07/2023 showed EF of 35%, functioning mitral bioprosthesis. ASSESSMENT: * Supratherapeutic INR in the setting of mechanical mitral valve. * Noncompliance with warfarin. * CABG redo with mechanical MVR in 2009. * 2008, CABG x2 with grafting to the proximal and distal LAD and an SVG to the OM. * Ischemic cardiomyopathy. * 07/2023, echo, EF 35%, well-seated mitral prosthesis with no periprosthetic leak. * 2020 Lexiscan with anterior and anterolateral infarct, mild anterior hypokinesis, no reversible ischemia. * Paroxysmal atrial fibrillation/flutter, on warfarin. * Medtronic ICD. * Hypothyroidism. * Dyslipidemia. * Seizure disorder. PLAN: The patient continues on heparin dip. She has received 1 dose of warfarin. Continue until her INR is above 2, at which point she can be discharged. I believe her home regimen was warfarin alternating 3 mg and 6 mg from this with the office and the patient herself. Continue Ranexa, spironolactone, metoprolol succinate, lisinopril, Lasix 40 b.i.d. She is on digoxin. TID: [id number] RECEIPT: [id number]
[2024-08-14 21:03] VITALS: O2SAT 96
--- NOTE | 2024-08-14 21:40 | NUR ---
NEW ADMISSION REC'D PT TO RM 203, VIA STRETCHER TO BED, NO ACUTE DISTRESS NOTED, HEPARIN DRIP INFUSING @ 15 UNITS/KG/HR, SR UP X 2 , CALL LEE WITHIN REACH, (SEE ADMISSION DATABASE), ENCOURAGED PT TO CALL FOR ASSISTANCE, VERBALIZED UNDERSTANDING
[2024-08-14 22:00] VITALS: O2SAT 20
--- NOTE | 2024-08-14 22:34 | PN ---
PROGRESS NOTE PROGRESS NOTE DATE OF PROGRESS NOTE: 08/14/24 SUBJECTIVE: No new complaints VITAL SIGNS Vital Signs Date Time Temp Pulse Resp B/P (MAP) Pulse Ox O2 Delivery O2 Flow Rate FiO2 08/14/24 22:00 20 Room Air* 0 21 08/14/24 20:50 99.1 96 20 115/75 PHYSICAL EXAM: HEENT: Hearing intact. No facial asymmetry, nasal discharge or icterus. NECK: Symmetric. Midline trachea. No bruits. CARDIOVASCULAR: Rhythm and rate regular. Mechanical valve sounds noted. No edema. Dorsal pulses 2+ bilaterally. RESPIRATORY: Clear to the bases. No crackles or wheezes. GASTROINTESTINAL: Benign, soft, nontender. MUSCULOSKELETAL: No amputations or deformities. Range of motion grossly normal. SKIN: No ecchymosis or ulcers. Warm to the touch. Some venous stasis discoloration to her lower legs. NEUROLOGIC: No tremors. Speech clear. PSYCHIATRIC: Alert, oriented x 3, cooperative and pleasant, answering all questions appropriately. LABORATORY: Laboratory Result(s) Test 08/14/24 03:27 08/14/24 07:02 08/14/24 09:21 08/14/24 15:14 Prothrombin Time 12.3 SEC (9.6-11.6) 11.9 SEC (9.6-11.6) Prothromb Time International Ratio 1.18 (0.85-1.15) 1.14 (0.85-1.15) Activated Partial Thromboplast Time 75.2 SEC (26.3-35.5) 70.6 SEC (26.3-35.5) 56.7 SEC (26.3-35.5) White Blood Count 5.1 K/uL (4.8-10.8) Red Blood Count 4.04 MIL/uL (4.00-5.50) Hemoglobin 12.1 g/dL (12.0-16.0) Hematocrit 36.5 % (36-48) Mean Corpuscular Volume 90.3 fL (79-99) Mean Corpuscular Hemoglobin 30.0 pg (27.0-33.0) Mean Corpuscular Hemoglobin Concent 33.2 g/dL (32.0-36.0) Red Cell Distribution Width 13.4 % (11.0-15.5) Platelet Count 213 K/uL (130-400) Mean Platelet Volume 11.7 fL (7.5-10.5) Immature Granulocyte % (Auto) 0.6 % (0-1) Neutrophils (%) (Auto) 45.5 % (40.0-77.0) Lymphocytes (%) (Auto) 40.0 % (21.0-51.0) Monocytes (%) (Auto) 10.0 % (3.0-13.0) Eosinophils (%) (Auto) 3.3 % (0.0-8.0) Basophils (%) (Auto) 0.6 % (0.0-5.0) Neutrophils # (Auto) 2.3 K/uL (1.8-7.7) Lymphocytes # (Auto) 2.0 K/uL (1.0-4.8) Monocytes # (Auto) 0.5 K/uL (0.1-1.0) Eosinophils # (Auto) 0.17 K/uL (0.00-0.70) Basophils # (Auto) 0.03 K/uL (0.00-0.20) Absolute Immature Granulocyte (auto 0.03 K/uL (0-1) Nucleated Red Blood Cells 0.0 % (0.0-0.19) Sodium Level 139 mmol/L (136-145) Potassium Level 3.4 mmol/L (3.5-5.1) Chloride Level 102 mmol/L (101-111) Carbon Dioxide Level 30 mmol/L (21-32) Blood Urea Nitrogen 12 mg/dL (7-18) Creatinine 0.9 mg/dL (0.5-1.0) Glomerular Filtration Rate Calc 76 mL/min (>90) Random Glucose 120 mg/dL (70-105) Total Calcium 8.8 mg/dL (8.5-10.1) Total Bilirubin 1.4 mg/dL (0.2-1.0) Aspartate Amino Transf (AST/SGOT) 21 U/L (10-37) Alanine Aminotransferase (ALT/SGPT) 30 U/L (12-78) Alkaline Phosphatase 86 U/L (50-136) Total Protein 8.0 g/dL (6.0-8.3) Albumin 3.7 g/dL (3.5-5.0) INPATIENT MEDS: Current Medications Medications Dose Ordered Sig/Jarocho Start Time Stop Time Status Last Admin Heparin Sodium/ Dextrose 250 ml @ 0 mls/hr PROTOCOL 08/13/24 12:30 09/12/24 12:29 08/14/24 16:33 Buspirone HCl 5 mg BID 08/14/24 09:00 09/13/24 08:59 08/14/24 20:57 Digoxin 125 mcg DAILY 08/14/24 09:00 09/13/24 08:59 08/14/24 09:20 Divalproex Sodium 250 mg BID 08/14/24 09:00 09/13/24 08:59 08/14/24 20:57 Furosemide 40 mg BID 08/14/24 09:00 09/13/24 08:59 08/14/24 20:57 Lisinopril 2.5 mg DAILY 08/14/24 09:00 09/13/24 08:59 08/14/24 09:20 Metoprolol Succinate 25 mg BID 08/14/24 09:00 09/13/24 08:59 08/14/24 20:57 Potassium Chloride 20 meq DAILY 08/14/24 09:00 09/13/24 08:59 08/14/24 09:18 Spironolactone 25 mg BID 08/14/24 09:00 09/13/24 08:59 08/14/24 20:57 Alprazolam 1 mg TID PRN 08/14/24 06:00 08/21/24 05:59 Cetirizine HCl 10 mg HS 08/14/24 21:00 09/13/24 20:59 08/14/24 20:57 Levothyroxine Sodium 100 mcg SYN 08/14/24 06:30 09/13/24 06:29 08/14/24 06:01 Pantoprazole Sodium 40 mg DAILY 08/14/24 09:00 09/13/24 08:59 08/14/24 09:18 Ranolazine 500 mg BID 08/14/24 09:00 09/13/24 08:59 08/14/24 20:57 Nitroglycerin 0.4 mg AD PRN 08/14/24 06:00 09/13/24 05:59 Warfarin Sodium 5 mg WARF 08/14/24 16:00 08/21/24 15:59 08/14/24 16:30 PROBLEM LIST: (1) Hypoglycemia ICD Code: E16.2 - Hypoglycemia, unspecified; Z79.01 - custodial (current) use of anticoagulants (2) Subtherapeutic anticoagulation ICD Code: Z51.81 - Encounter for therapeutic drug level monitoring; Z79.01 - 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 ASSESSMENT: * Supratherapeutic INR in the setting of mechanical mitral valve. * Noncompliance with warfarin. * CABG redo with mechanical MVR in 2009. * 2008, CABG x2 with grafting to the proximal and distal LAD and an SVG to the OM. * Ischemic cardiomyopathy. * 07/2023, echo, EF 35%, well-seated mitral prosthesis with no periprosthetic leak. * 2020 Lexiscan with anterior and anterolateral infarct, mild anterior hypokinesis, no reversible ischemia. * Paroxysmal atrial fibrillation/flutter, on warfarin. * Medtronic ICD. * Hypothyroidism. * Dyslipidemia. * Seizure disorder. PLAN: The patient continues on heparin dip. She has received 1 dose of warfarin. Continue until her INR is above 2, at which point she can be discharged. AARON GAUTHIER MD Aug 14, 2024 22:34
[2024-08-14 23:36] VITALS: BP 106/55; PULSE 74; RESP 20; TEMP 98.8
[2024-08-15] VITALS (8 sets, daily range): BP systolic 107–123; BP diastolic 57–63; PULSE 69–91; RESP 16–20; TEMP 97.9–98.7; O2SAT 96
--- NOTE | 2024-08-15 00:31 | HP ---
HISTORY OF PRESENT ILLNESS: The patient of Dr. Gonzalez. She was sent to the Emergency Room by her intel recruiter, Dr. Trejo with orders to start her on heparin drip due to under-therapeutic levels of INR. The patient is on warfarin for prevention of thromboembolic disease. She is status post mitral valve replacement with a mechanical valve. REVIEW OF SYSTEMS: The patient refers no fever, chills, seizures. No diplopia, dysarthria or dysphonia. No sore throat. No cough, wheezes, rhonchi. No chest pain, palpitations or dizziness. No abdominal pain, no nausea, vomiting or diarrhea. No dysuria, urgency or frequency. No rashes, petechia or ecchymoses. No hallucinations, delusions, no suicidal ideation. MEDICATIONS: Include digoxin, buspirone, cetirizine, divalproex sodium, omeprazole, metoprolol, ranolazine, lisinopril, spironolactone, levothyroxine, alprazolam, atorvastatin, furosemide, warfarin 3 mg tablet p.o. daily, amitriptyline. ALLERGIES: No known drug allergies. PHYSICAL EXAMINATION: GENERAL: She is currently awake, alert, oriented in person, time, and place, not in distress. VITAL SIGNS: Blood pressure 112/67, pulse 99, respiratory rate 20, temperature 98.1. HEENT: Normocephalic, atraumatic. LUNGS: Clear to auscultation. HEART: S1, S2 are distant. ABDOMEN: Soft, nontender, no masses. EXTREMITIES: No clubbing or cyanosis, no edema. NEUROLOGIC: Cranial nerves 2-12 grossly preserved. LABORATORY DATA: WBC count 5.4, hemoglobin 12.6, platelets 228. Prothrombin time was 11.3, INR was 1.07, PTT was 25.8, potassium 4.4, creatinine 0.9, BUN 15. Urinalysis within normal limits. EKG shows AV paced rhythm, but heart rate in the 80s. ASSESSMENT AND PLAN: * Subtherapeutic INR levels. The patient will be admitted and started on heparin. Continue with heparin as per protocol. Continue with warfarin. Consult Cardiology to follow recommendations. * Hypertension. Continue with home medications. * Dyslipidemia. Continue home medications. * Hypothyroidism. Continue levothyroxine. * Type 2 diabetes. Continue with diet as well as home medications. * The patient will be transferred to Dr. Gonzalez's service. cellulitis. Continue to monitor, PTT and INR levels. DOS: 08/14/2024 TID: [id number] RECEIPT: [id number] MTDD
[2024-08-15 03:56] LABS: INR 1.33 (0.85-1.15); PROTHROMBIN TIME 13.7 SEC (9.6-11.6)
[2024-08-15 03:57] LABS: PARTIAL THROMBOPLASTIN TIME 85.5 SEC (26.3-35.5)
--- NOTE | 2024-08-15 13:08 | PN ---
PROGRESS NOTE PROGRESS NOTE DATE OF PROGRESS NOTE: 08/15/24 SUBJECTIVE: Patient still is subtherapeutic VITAL SIGNS Vital Signs Date Time Temp Pulse Resp B/P (MAP) Pulse Ox O2 Delivery O2 Flow Rate FiO2 08/15/24 11:54 98.1 88 16 123/61 95 Room Air 08/15/24 07:50 0 21 PHYSICAL EXAM: HEENT: Hearing intact. No facial asymmetry, nasal discharge or icterus. NECK: Symmetric. Midline trachea. No bruits. CARDIOVASCULAR: Rhythm and rate regular. Mechanical valve sounds noted. No edema. Dorsal pulses 2+ bilaterally. RESPIRATORY: Clear to the bases. No crackles or wheezes. GASTROINTESTINAL: Benign, soft, nontender. MUSCULOSKELETAL: No amputations or deformities. Range of motion grossly normal. SKIN: No ecchymosis or ulcers. Warm to the touch. Some venous stasis discoloration to her lower legs. NEUROLOGIC: No tremors. Speech clear. PSYCHIATRIC: Alert, oriented x 3, cooperative and pleasant, answering all questions appropriately. LABORATORY: Laboratory Result(s) Test 08/14/24 15:14 08/15/24 03:33 08/15/24 09:58 08/15/24 11:09 Prothrombin Time 11.9 SEC (9.6-11.6) 13.7 SEC (9.6-11.6) Prothromb Time International Ratio 1.14 (0.85-1.15) 1.33 (0.85-1.15) Activated Partial Thromboplast Time 56.7 SEC (26.3-35.5) 85.5 SEC (26.3-35.5) 76.3 SEC (26.3-35.5) Whole Blood Glucose 146 MG/DL (70-110) INPATIENT MEDS: Current Medications Medications Dose Ordered Sig/Jarocho Start Time Stop Time Status Last Admin Heparin Sodium/ Dextrose 250 ml @ 0 mls/hr PROTOCOL 08/13/24 12:30 09/12/24 12:29 08/14/24 16:33 Buspirone HCl 5 mg BID 08/14/24 09:00 09/13/24 08:59 08/15/24 09:28 Digoxin 125 mcg DAILY 08/14/24 09:00 09/13/24 08:59 08/15/24 09:28 Divalproex Sodium 250 mg BID 08/14/24 09:00 09/13/24 08:59 08/15/24 09:26 Furosemide 40 mg BID 08/14/24 09:00 09/13/24 08:59 08/15/24 09:28 Lisinopril 2.5 mg DAILY 08/14/24 09:00 09/13/24 08:59 08/15/24 09:28 Metoprolol Succinate 25 mg BID 08/14/24 09:00 09/13/24 08:59 08/15/24 09:26 Potassium Chloride 20 meq DAILY 08/14/24 09:00 09/13/24 08:59 08/15/24 09:27 Spironolactone 25 mg BID 08/14/24 09:00 09/13/24 08:59 08/15/24 09:27 Alprazolam 1 mg TID PRN 08/14/24 06:00 08/21/24 05:59 Cetirizine HCl 10 mg HS 08/14/24 21:00 09/13/24 20:59 08/14/24 20:57 Levothyroxine Sodium 100 mcg SYN 08/14/24 06:30 09/13/24 06:29 08/15/24 05:36 Pantoprazole Sodium 40 mg DAILY 08/14/24 09:00 09/13/24 08:59 08/15/24 09:29 Ranolazine 500 mg BID 08/14/24 09:00 09/13/24 08:59 08/15/24 09:27 Nitroglycerin 0.4 mg AD PRN 08/14/24 06:00 09/13/24 05:59 Warfarin Sodium 5 mg WARF 08/14/24 16:00 08/21/24 15:59 08/14/24 16:30 PROBLEM LIST: (1) Hypoglycemia ICD Code: E16.2 - Hypoglycemia, unspecified; Z79.01 - [facility] (current) use of anticoagulants (2) Subtherapeutic anticoagulation ICD Code: Z51.81 - Encounter for therapeutic drug level monitoring; Z79.01 - [facility] (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 ASSESSMENT: * Supratherapeutic INR in the setting of mechanical mitral valve. * Noncompliance with warfarin. * CABG redo with mechanical MVR in 2009. * 2009, CABG x2 with grafting to the proximal and distal LAD and an SVG to the OM. * Ischemic cardiomyopathy. * 07/2023, echo, EF 35%, well-seated mitral prosthesis with no periprosthetic leak. * 2020 Lexiscan with anterior and anterolateral infarct, mild anterior hypokinesis, no reversible ischemia. * Paroxysmal atrial fibrillation/flutter, on warfarin. * Medtronic ICD. * Hypothyroidism. * Dyslipidemia. * Seizure disorder. PLAN: The patient continues on heparin dip. She has received 1 dose of warfarin. Continue until her INR is above 2, at which point she can be discharged. AARON GAUTHIER MD Aug 15, 2024 13:08
--- NOTE | 2024-08-15 14:22 | PN ---
Cardiology Progress Note Date of Service: 08/15/2024 Attending Can Bander Operator: Dr. Marcelo Omalley Primary Can Bander Operator: Dr. Kaiden Trejo Reason for Consult: Subtherapeutic INR Problem List: -Subtherapeutic INR on chronic Coumadin therapy -LM CAD + severe MR s/p 2V CABG (CURRAN-LAD, SVG-OM) with concomitant MVr annuloplasty ring ([address] [place]) done on 04/19/[address] Ventuar s/p redo sternotomy with redo 3V CABG (SVG-pLAD, SVG-dLAD, SVG-OM) with concomitant mechanical MVR (23mm [facility] [place]) done on 11/11/2009 -HFrEF (LVEF: 35% by echo done 08/02/2023) -Paroxysmal atrial fibrillation -PSVT -ICM s/p BiV ICD implantation (Biotronik Intica 7 HF-T) done on 07/14/2020 -Seizure disorder on AED therapy -HTN -HLP -Hypothyroidism -Noncompliance Subjective: This is a 54-year-old female who is seen and evaluated at the bedside today. The patient complains of intermittent episodes of palpitations, but denies any chest pain, chest pressure, or shortness of breath. There were no overnight reported events. Vitals/Labs Vital Signs Date Time Temp Pulse Resp B/P (MAP) Pulse Ox O2 Delivery O2 Flow Rate FiO2 08/15/24 11:54 98.1 88 16 123/61 95 Room Air 08/15/24 07:50 0 21 General: Awake and alert x3. No acute distress. Chronically ill appearing. HEENT: Normocephalic, atraumatic, EOMI, oral mucosa was moist. Neck: No masses, JVD, or carotid bruits noted. Lungs: No respiratory distress. SCM. Bilateral air entry. Clear to auscultation bilaterally. No rales, wheezing, or rhonchi noted. Cardio: Regular rate. Normal S1 and S2. Mechanical click noted at the apex. Abdomen: Soft, nontender, nondistended, no organomegaly. Normal active bowel sounds x4 quadrants. Extremities: No edema, clubbing, or cyanosis noted. +2 pulses noted throughout. Neuro: Cranial nerves II through XII are grossly intact. No focal deficit identified. Assessment: -Subtherapeutic INR on chronic Coumadin therapy -LM CAD + severe MR s/p 2V CABG (CURRAN-LAD, SVG-OM) with concomitant MVr annuloplasty ring ([address] [place]) done on 04/19/[address] Ventura s/p redo sternotomy with redo 3V CABG (SVG-pLAD, SVG-dLAD, SVG-OM) with concomitant mechanical MVR (23mm [employer] [place]) done on 11/11/2009 -HFrEF (LVEF: 35% by echo done 08/02/2023) -Paroxysmal atrial fibrillation -PSVT -ICM s/p BiV ICD implantation (Biotronik In[place] 7 HF-T) done on 07/14/2020 -Seizure disorder on AED therapy -HTN -HLP -Hypothyroidism -Noncompliance Plan: 1. Subtherapeutic INR on chronic Coumadin therapy -INR: 1.33 -The patient will continue on the IV heparin infusion and daily Coumadin therapy until her INR is therapeutic (INR goal: 2.5-3.5 in the setting of a mechanical mitral valve). Once this has been achieved, the IV heparin infusion can be discontinued. -Please obtain daily INR levels. 2. LM CAD + severe MR s/p 2V CABG (CURRAN-LAD, SVG-OM) with concomitant MVr annuloplasty ring ([address] [place]) done on 04/19/[address] Ventura s/p redo sternotomy with redo 3V CABG (SVG-pLAD, SVG-dLAD, SVG-OM) with concomitant mechanical MVR (23mm [facility] [place]) done on 11/11/2009 -Stable -Continue metoprolol succinate 25 mg BID, ranolazine ER 500 mg BID, and we will start the patient on aspirin 81 mg daily and atorvastatin 40 mg QHS. 3. HFrEF (LVEF: 35% by echo done 08/02/2023) -Stable -The patient will continue on metoprolol succinate 25 mg BID, lisinopril 2.5 mg daily, spironolactone 25 mg BID, and furosemide 40 mg BID. -Please record strict I's and O's, daily weights, and restrict fluids less than 2.0 L per day 4. Paroxysmal atrial fibrillation -Substrate: Mild LAD -12H telemetry: V paced rhythm, HR: 90 bpm -Continue metoprolol succinate 25 mg BID and digoxin 125 mcg daily. -In addition, we will obtain a digoxin level to ensure that the patient remains within a therapeutic range. -CHADS2 VASc score: 5 points. The patient will continue on the IV heparin infusion and daily Coumadin until she achieves her target INR goal, at which point the IV heparin infusion will be discontinued. -Please keep the patient on continuous telemetry monitoring and maintain electrolytes within normal parameters. MARCELO OMALLEY MD Aug 15, 2024 14:22
[2024-08-15] MEDS: atorVAStatin 40 MG TABLET PO SCH (20:04)
[2024-08-15] MEDS: acetaMINOPHEN 325 MG TAB ONE (20:40)
[2024-08-15] MEDS: acetaMINOPHEN 325 MG TAB PO PRN (20:43)
[2024-08-15] MEDS: ALPRAZolam 1 MG TAB PO PRN (20:46)
[2024-08-16] VITALS (7 sets, daily range): BP systolic 101–171; BP diastolic 52–81; PULSE 71–85; RESP 16–20; TEMP 97.4–98.4; O2SAT 95–96
--- NOTE | 2024-08-16 00:15 | NUR ---
Handoff report given to Jorge RODARTE at this time, all questions answered. Addendum: 08/16/24 at 0247 by TERESSA MONSON RN RN Handoff 08/16/2024 0015 report given to Noy TRINIDAD at this time, all questions answered.
[2024-08-16 03:48] LABS: MEAN CORPUSCULAR HEMOGLOBIN 30.4 pg (27.0-33.0); MEAN CORPUSCULAR HGB CONC 34.2 g/dL (32.0-36.0); MEAN CORPUSCULAR VOLUME 89.1 fL (79-99); RED BLOOD CELL COUNT(AUTO) 4.04 MIL/uL (4.00-5.50); RED CELL DISTRIBUTION WIDTH 13.2 % (11.0-15.5); WHITE BLOOD COUNT (AUTO) 4.7 K/uL (4.8-10.8)
[2024-08-16 03:52] LABS: HEMOGLOBIN A1C 6.3 % (4.0-6.0)
[2024-08-16 03:53] LABS: MAGNESIUM 1.9 mg/dL (1.80-2.40); POTASSIUM 3.4 mmol/L (3.5-5.1)
[2024-08-16 06:16] LABS: INR 2.43 (0.85-1.15); PROTHROMBIN TIME 23.6 SEC (9.6-11.6)
[2024-08-16] MEDS: ASPIRIN 81MG CHEW TAB PO SCH (09:25)
--- NOTE | 2024-08-16 14:24 | PN ---
Cardiology Progress Note Date of Service: 08/16/2024 Attending Check Services Clerk: Dr. Marcelo Omalley Primary Check Services Clerk: Dr. Kaiden Trejo Reason for Consult: Subtherapeutic INR Problem List: -Subtherapeutic INR on chronic Coumadin therapy -LM CAD + severe MR s/p 2V CABG (CURRAN-LAD, SVG-OM) with concomitant MVr annuloplasty ring ([address] [facility]) done on 04/19/[address] Ventura s/p redo sternotomy with redo 3V CABG (SVG-pLAD, SVG-dLAD, SVG-OM) with concomitant mechanical MVR (23mm [facility]) done on 11/11/2009 -HFrEF (LVEF: 35% by echo done 08/02/2023) -Paroxysmal atrial fibrillation -PSVT -ICM s/p BiV ICD implantation (Biotronik Intica 7 HF-T) done on 07/14/2020 -Seizure disorder on AED therapy -HTN -HLP -Hypothyroidism -Noncompliance Subjective: This is a 54-year-old female who is seen and evaluated at the bedside today. The patient denies any active complains including chest pain, chest pressure, palpitations, or shortness of breath. As per the nurse, there were no overnight reported events. Vitals/Labs Vital Signs Date Time Temp Pulse Resp B/P (MAP) Pulse Ox O2 Delivery O2 Flow Rate FiO2 08/16/24 12:10 98.1 71 16 171/81 98 Room Air 08/16/24 09:22 0 21 General: Awake and alert x3. No acute distress. Chronically ill appearing. HEENT: Normocephalic, atraumatic, EOMI, oral mucosa was moist. Neck: No masses, JVD, or carotid bruits noted. Lungs: No respiratory distress. SCM. Bilateral air entry. Clear to auscultation bilaterally. No rales, wheezing, or rhonchi noted. Cardio: Regular rate. Normal S1 and S2. Mechanical click noted at the apex. Abdomen: Soft, nontender, nondistended, no organomegaly. Normal active bowel sounds x4 quadrants. Extremities: No edema, clubbing, or cyanosis noted. +2 pulses noted throughout. Neuro: Cranial nerves II through XII are grossly intact. No focal deficit identified. Laboratory Tests 08/16/24 02:42 Assessment: -Subtherapeutic INR on chronic Coumadin therapy -LM CAD + severe MR s/p 2V CABG (CURRAN-LAD, SVG-OM) with concomitant MVr annuloplasty ring ([address] [facility]) done on 04/19/[address] Ventura s/p redo sternotomy with redo 3V CABG (SVG-pLAD, SVG-dLAD, SVG-OM) with concomitant mechanical MVR (23mm [facility]) done on 11/11/2009 -HFrEF (LVEF: 35% by echo done 08/02/2023) -Paroxysmal atrial fibrillation -PSVT -ICM s/p BiV ICD implantation (Biotronik In[place] 7 HF-T) done on 07/14/2020 -Seizure disorder on AED therapy -HTN -HLP -Hypothyroidism -Noncompliance Plan: 1. Subtherapeutic INR on chronic Coumadin therapy -INR: 2.43 -The patient will continue on the IV heparin infusion and daily Coumadin therapy until her INR is therapeutic (INR goal: 2.5-3.5 in the setting of a mechanical mitral valve). Once this has been achieved, the IV heparin infusion can be discontinued. -We will repeat an INR level in the AM in order to determine whether we can discontinue the IV heparin infusion. 2. LM CAD + severe MR s/p 2V CABG (CURRAN-LAD, SVG-OM) with concomitant MVr annuloplasty ring ([address] [facility]) done on 04/19/[address] Ventura s/p redo sternotomy with redo 3V CABG (SVG-pLAD, SVG-dLAD, SVG-OM) with concomitant mechanical MVR (23mm [facility]) done on 11/11/2009 -Stable -Continue aspirin 81 mg daily, metoprolol succinate 25 mg BID, ranolazine ER 500 mg BID, and atorvastatin 40 mg QHS. 3. HFrEF (LVEF: 35% by echo done 08/02/2023) -Stable -The patient will continue on furosemide 40 mg BID, metoprolol succinate 25 mg BID, lisinopril 2.5 mg daily, and spironolactone 25 mg BID. -Please record strict I/O's, daily weights, and restrict fluids less than 2.0 L per day 4. Paroxysmal atrial fibrillation -Substrate: Mild LAD -12H telemetry: V paced rhythm, HR range: 70-90 bpm -Continue metoprolol succinate 25 mg BID and digoxin 125 mcg daily. -CHADS2 VASc score: 5 points. The patient will continue on the IV heparin infusion and daily Coumadin until she achieves her target INR goal, at which point the IV heparin infusion will be discontinued. -Please keep the patient on continuous telemetry monitoring and maintain electrolytes within normal parameters. MARCELO OMALLEY MD Aug 16, 2024 14:24
--- NOTE | 2024-08-16 22:01 | PN ---
PROGRESS NOTE PROGRESS NOTE DATE OF PROGRESS NOTE: 08/16/24 SUBJECTIVE: no complaints VITAL SIGNS Vital Signs Date Time Temp Pulse Resp B/P (MAP) Pulse Ox O2 Delivery O2 Flow Rate FiO2 08/16/24 20:17 98.4 85 18 113/55 95 Room Air 08/16/24 09:22 0 21 PHYSICAL EXAM: HEENT: Hearing intact. No facial asymmetry, nasal discharge or icterus. NECK: Symmetric. Midline trachea. No bruits. CARDIOVASCULAR: Rhythm and rate regular. Mechanical valve sounds noted. No edema. Dorsal pulses 2+ bilaterally. RESPIRATORY: Clear to the bases. No crackles or wheezes. GASTROINTESTINAL: Benign, soft, nontender. MUSCULOSKELETAL: No amputations or deformities. Range of motion grossly normal. SKIN: No ecchymosis or ulcers. Warm to the touch. Some venous stasis discoloration to her lower legs. NEUROLOGIC: No tremors. Speech clear. PSYCHIATRIC: Alert, oriented x 3, cooperative and pleasant, answering all questions appropriately. LABORATORY: Laboratory Result(s) Test 08/15/24 22:44 08/16/24 02:42 08/16/24 05:04 08/16/24 11:32 Activated Partial Thromboplast Time 55.1 SEC (26.3-35.5) 69.6 SEC (26.3-35.5) White Blood Count 4.7 K/uL (4.8-10.8) Red Blood Count 4.04 MIL/uL (4.00-5.50) Hemoglobin 12.3 g/dL (12.0-16.0) Hematocrit 36.0 % (36-48) Mean Corpuscular Volume 89.1 fL (79-99) Mean Corpuscular Hemoglobin 30.4 pg (27.0-33.0) Mean Corpuscular Hemoglobin Concent 34.2 g/dL (32.0-36.0) Red Cell Distribution Width 13.2 % (11.0-15.5) Platelet Count 194 K/uL (130-400) Mean Platelet Volume 12.1 fL (7.5-10.5) Nucleated Red Blood Cells 0.0 % (0.0-0.19) Prothrombin Time 23.6 SEC (9.6-11.6) Prothromb Time International Ratio 2.43 (0.85-1.15) Sodium Level 134 mmol/L (136-145) Potassium Level 3.4 mmol/L (3.5-5.1) Chloride Level 100 mmol/L (101-111) Carbon Dioxide Level 29 mmol/L (21-32) Blood Urea Nitrogen 15 mg/dL (7-18) Creatinine 1.0 mg/dL (0.5-1.0) Glomerular Filtration Rate Calc 67 mL/min (>90) Random Glucose 119 mg/dL (70-105) Hemoglobin A1c 6.3 % (4.0-6.0) Estimated Average Glucose (eAG) 134 mg/dL (70-126) Total Calcium 9.3 mg/dL (8.5-10.1) Magnesium Level 1.90 mg/dL (1.80-2.40) Whole Blood Glucose 126 MG/DL (70-110) 121 MG/DL (70-110) Test 08/16/24 15:42 Whole Blood Glucose 143 MG/DL (70-110) INPATIENT MEDS: Current Medications Medications Dose Ordered Sig/Jarocho Start Time Stop Time Status Last Admin Heparin Sodium/ Dextrose 250 ml @ 0 mls/hr PROTOCOL 08/13/24 12:30 09/12/24 12:29 08/14/24 16:33 Buspirone HCl 5 mg BID 08/14/24 09:00 09/13/24 08:59 08/16/24 21:25 Digoxin 125 mcg DAILY 08/14/24 09:00 09/13/24 08:59 08/16/24 09:24 Divalproex Sodium 250 mg BID 08/14/24 09:00 09/13/24 08:59 08/16/24 21:25 Furosemide 40 mg BID 08/14/24 09:00 09/13/24 08:59 08/16/24 21:25 Lisinopril 2.5 mg DAILY 08/14/24 09:00 09/13/24 08:59 08/16/24 09:25 Metoprolol Succinate 25 mg BID 08/14/24 09:00 09/13/24 08:59 08/16/24 21:25 Potassium Chloride 20 meq DAILY 08/14/24 09:00 09/13/24 08:59 08/16/24 09:24 Spironolactone 25 mg BID 08/14/24 09:00 09/13/24 08:59 08/16/24 21:25 Alprazolam 1 mg TID PRN 08/14/24 06:00 08/21/24 05:59 08/16/24 21:29 Cetirizine HCl 10 mg HS 08/14/24 21:00 09/13/24 20:59 08/16/24 21:25 Levothyroxine Sodium 100 mcg SYN 08/14/24 06:30 09/13/24 06:29 08/16/24 05:56 Pantoprazole Sodium 40 mg DAILY 08/14/24 09:00 09/13/24 08:59 08/16/24 09:24 Ranolazine 500 mg BID 08/14/24 09:00 09/13/24 08:59 08/16/24 21:25 Nitroglycerin 0.4 mg AD PRN 08/14/24 06:00 09/13/24 05:59 Warfarin Sodium 5 mg WARF 08/14/24 16:00 08/21/24 15:59 08/16/24 16:42 Atorvastatin Calcium 40 mg HS 08/15/24 21:00 09/14/24 20:59 08/16/24 21:25 Aspirin 81 mg DAILY 08/16/24 09:00 09/15/24 08:59 08/16/24 09:25 Acetaminophen 650 mg Q6H PRN 08/15/24 21:00 09/14/24 20:59 08/15/24 20:43 PROBLEM LIST: (1) Hypoglycemia ICD Code: E16.2 - Hypoglycemia, unspecified; Z79.01 - [facility]DC (current) use of anticoagulants (2) Subtherapeutic anticoagulation ICD Code: Z51.81 - Encounter for therapeutic drug level monitoring; Z79.01 - long term care pharmacist (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 ASSESSMENT: * Supratherapeutic INR in the setting of mechanical mitral valve. * Noncompliance with warfarin. * CABG redo with mechanical MVR in 2009. * 2008, CABG x2 with grafting to the proximal and distal LAD and an SVG to the OM. * Ischemic cardiomyopathy. * 07/2023, echo, EF 35%, well-seated mitral prosthesis with no periprosthetic leak. * 2020 Lexiscan with anterior and anterolateral infarct, mild anterior hypokinesis, no reversible ischemia. * Paroxysmal atrial fibrillation/flutter, on warfarin. * [employer] ICD. * Hypothyroidism. * Dyslipidemia. * Seizure disorder. PLAN: The patient continues on heparin dip. She has received 1 dose of warfarin. Continue until her INR is above 2, at which point she can be discharged. AARON GAUTHIER MD Aug 16, 2024 22:01
[2024-08-17] VITALS (7 sets, daily range): BP systolic 94–120; BP diastolic 44–60; PULSE 68–82; RESP 16–18; TEMP 97.4–98.6; O2SAT 98
[2024-08-17 04:08] LABS: HEMATOCRIT 36.5 % (36-48); MEAN CORPUSCULAR HEMOGLOBIN 30.6 pg (27.0-33.0); MEAN CORPUSCULAR HGB CONC 34.2 g/dL (32.0-36.0); MEAN CORPUSCULAR VOLUME 89.5 fL (79-99); RED BLOOD CELL COUNT(AUTO) 4.08 MIL/uL (4.00-5.50); RED CELL DISTRIBUTION WIDTH 13.2 % (11.0-15.5); WHITE BLOOD COUNT (AUTO) 3.7 K/uL (4.8-10.8)
[2024-08-17 04:16] LABS: MAGNESIUM 1.9 mg/dL (1.80-2.40); POTASSIUM 3.7 mmol/L (3.5-5.1)
[2024-08-17] MEDS ORDERED: PoTASSium chl 10% ELIXIR 20MEQ 20 MEQ/15 ML UDCUP PO PRN (07:30)
[2024-08-17] MEDS ORDERED: PoTASSium chloRIDE 20MEQ ER 20 MEQ ERTAB PO PRN (07:30)
[2024-08-17] MEDS ORDERED: MAGNESIUM 2GM PREMIX 50ML 50 ML IV PRN (07:30)
[2024-08-17] MEDS ORDERED: PoTASSium chloRIDE 20MEQ/100ML 100 ML IV PRN (07:30)
[2024-08-17 08:21] LABS: INR 4.13 (0.85-1.15)
[2024-08-17 10:22] LABS: PARTIAL THROMBOPLASTIN TIME 71.5 SEC (26.3-35.5)
[2024-08-17 10:27] LABS: PROTHROMBIN TIME 40.8 SEC (9.6-11.6)
[2024-08-17 10:28] LABS: INR 4.46 (0.85-1.15)
--- NOTE | 2024-08-17 22:12 | DS ---
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): [Cardiology] PROCEDURE(S)/TREATMENT(S): [None] PROBLEM(S): [] FOLLOW-UP TEST(S): [Follow up protime and INR] DISCHARGE INSTRUCTIONS: [Follow up in office in 1-2 days] Home Meds Reported Medications Nitroglycerin (Nitroglycerin) 0.4 Mg Tab.subl, 1 TAB SL AD PRN for CHEST PAIN, #25 TAB 0 Refills 1st sign of attack; may repeat every 5 mins; if pain persists after 3 in 15 min, medical attention is recommended 08/14/24 Ranolazine (Ranolazine ER) 500 Mg Tab.er.12h, 1 TAB PO BID for 30 Days, #60 TAB 0 Refills 08/14/24 Digoxin (Digoxin) 125 Mcg (0.125 Mg) Tablet, 1 TAB PO DAILY for 30 Days, #30 TAB 0 Refills 08/13/24 Buspirone HCl (Buspirone HCl) 5 Mg Tablet, 1 TAB PO BID for 30 Days, #60 TAB 0 Refills 08/13/24 Potassium Chloride (Potassium Chloride) 20 Meq Tab.er.prt, 1 TAB PO DAILY for 30 Days, #30 TAB 0 Refills 25 Cetirizine HCl (Cetirizine HCl) 10 Mg Tab.chew, 1 TAB PO HS for allergy symptoms for 30 Days, #30 TAB 0 Refills 08/13/24 Divalproex Sodium (Divalproex Sodium) 250 Mg Tablet.dr, 1 TAB PO BID for 30 Days, #60 TAB 0 Refills 08/13/24 Omeprazole (Omeprazole) 40 Mg Capsule.dr, 1 CAP PO DAILY for 30 Days, #30 CAP 0 Refills 08/13/24 Metoprolol Succinate (Metoprolol Succinate) 25 Mg Tab.er.24h, 1 TAB PO BID for 30 Days, #30 TAB 0 Refills 08/13/24 Celecoxib (Celecoxib) 200 Mg Capsule, 1 CAP PO BID for pain for 30 Days, #30 CAP 0 Refills 08/13/24 Lisinopril (Lisinopril) 2.5 Mg Tablet, 1 TAB PO DAILY for 30 Days, #30 TAB 0 Refills 08/13/24 Spironolactone (Spironolactone) 25 Mg Tablet, 1 TAB PO BID for 30 Days, #30 TAB 0 Refills 08/13/24 Levothyroxine Sodium (Levothyroxine) 100 Mcg Capsule, 1 CAP PO DAILY for 30 Days, #30 CAP 0 Refills 08/13/24 Alprazolam (Alprazolam) 0.5 Mg Tab.rapdis, 1 TAB PO TID for 30 Days, #30 TAB 0 Refills 08/13/24 Atorvastatin Calcium (LIPITOR) 40 Mg Tablet, 1 TAB PO DAILY for 30 Days, #30 TAB 0 Refills 08/13/24 Furosemide (Furosemide) 40 Mg Tablet, 1 TAB PO BID for 30 Days, #30 TAB 0 Refills 08/13/24 Warfarin Sodium (Warfarin Sodium) 3 Mg Tablet, 1 TAB PO DAILY for 30 Days, #30 TAB 0 Refills 08/13/24 Discontinued Reported Medications Ranolazine (Ranolazine ER) 1,000 Mg Tab.er.12h, 1 TAB PO BID for 30 Days, #60 TAB 0 Refills 08/13/24 Warfarin Sodium (Warfarin Sodium) 2.5 Mg Tablet, 2.5 MG PO DAILY, TAB 09/08/18 [atorvastatin] No Conflict Check 09/07/18 Potassium Chloride (Potassium Chloride) 20 Meq Tablet.er, 20 MEQ PO TID, TAB 09/07/18 Spironolactone (Spironolactone) 25 Mg Tablet, 25 MG PO BID, TAB 09/07/18 Carvedilol (Carvedilol) 6.25 Mg Tablet, 6.25 MG PO BID, TAB 09/07/18 Levothyroxine Sodium (Levothyroxine Sodium) 100 Mcg Tablet, 100 MCG PO ACBKFST, TAB 09/07/18 Alprazolam (Alprazolam) 0.5 Mg Tab.rapdis, 0.5 MG PO TID, TAB 09/07/18 Metformin HCl (Metformin HCl) 500 Mg Tablet, 1000 MG PO BID, TAB 09/07/18 Digoxin (Digoxin) 125 Mcg Tablet, 125 MCG PO DAILY, TAB 09/07/18 Divalproex Sodium (Divalproex Sodium ER) 250 Mg Tab.er.24h, 250 MG PO TID, TAB 09/07/18 Amitriptyline HCl (Amitriptyline HCl) 50 Mg Tablet, 50 MG PO BIDAC, TAB 09/07/18 Furosemide (Furosemide) 40 Mg Tablet, 40 MG PO BID, TAB 09/07/18 Lisinopril (Lisinopril) 2.5 Mg Tablet, 2.5 MG PO DAILY, TAB 09/07/18 Pregabalin (Lyrica) 75 Mg Cap, 75 MG PO BID PRN for PAIN LEVEL 1 TO 5, CAP 09/07/18 Ranolazine (Ranexa) 1,000 Mg Tab.er.12h, 1000 MG PO BID, TAB 09/07/18 AARON GAUTHIER MD Aug 17, 2024 22:12
== END 2024-08-17 16:40 | disposition home or self-care (01) | DRG 862 ==
LOC: EDH 12:08 → EDHIP 12:09 → 2AH 08-14 20:50
PROVIDERS: ADMIT Internal Medicine; ATTEND Internal Medicine
DX: Z51.81 Encounter for therapeutic drug level monitoring (principal); E11.649 Type 2 diabetes mellitus with hypoglycemia without coma; I50.22 Chronic systolic (congestive) heart failure; I11.0 Hypertensive heart disease with heart failure; I48.0 Paroxysmal atrial fibrillation; G40.909 Epilepsy, unspecified, not intractable, without status epilepticus; E78.5 Hyperlipidemia, unspecified; E03.9 Hypothyroidism, unspecified; R79.1 Abnormal coagulation profile; I25.5 Ischemic cardiomyopathy; F32.A Depression, unspecified; F41.9 Anxiety disorder, unspecified; I25.10 Atherosclerotic heart disease of native coronary artery without angina pectoris; Z95.2 Presence of prosthetic heart valve; Z79.01 Long term (current) use of anticoagulants; Z91.148 Patient's other noncompliance with medication regimen for other reason; Z95.1 Presence of aortocoronary bypass graft; I25.2 Old myocardial infarction; Z87.891 Personal history of nicotine dependence; Z95.810 Presence of automatic (implantable) cardiac defibrillator; Z79.899 Other long term (current) drug therapy
CPT/HCPCS: 36415; 80048; 80053; 80162; 81001; 82948; 83036; 83735; 84484; 85025; 85027; 85610; 85730; 93005; 96374; 99285; G0378; J1644

== ENCOUNTER 2024-09-12 19:15 | Emergency (ER) | payer OTHER, MEDICAID ==
[~2024-09-12] VITALS: Ht 157.5 cm; Wt 74.8 kg
[~2024-09-12 19:15] MED LIST changes: -AMIT50TA3 PO; +ATOR40TA69 PO; +BUSP5TAB3 PO; -CARV6.25 PO; +CELE-125 PO; +CETI10TA87 PO; +DIVA-76 PO; -DIVA250T45 PO; +LEVO100C5 PO; -LEVO100T12 PO; -METF-444 PO; +METO-408 PO; +NITR0.4T50 SL; +OMEP40CA21 PO; +POTA-202 PO; -POTA-364 PO; -PREG75 PO; -RANO10003 PO; +RANO500T6 PO; -WARF2.5T85 PO; +WARF3TAB59 PO; -atorvastatin
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
[2024-09-12 20:12] LABS: HEMATOCRIT 37.1 % (36-48); MEAN CORPUSCULAR HEMOGLOBIN 30.4 pg (27.0-33.0); MEAN CORPUSCULAR HGB CONC 33.2 g/dL (32.0-36.0); MEAN CORPUSCULAR VOLUME 91.8 fL (79-99); RED BLOOD CELL COUNT(AUTO) 4.04 MIL/uL (4.00-5.50); RED CELL DISTRIBUTION WIDTH 13.4 % (11.0-15.5)
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
[2024-09-12 20:31] LABS: PROTHROMBIN TIME 46.5 SEC (9.6-11.6)
[2024-09-12 20:32] LABS: INR 5.16 (0.85-1.15)
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
--- NOTE | 2024-09-12 20:46 | NUR ---
PATIENT STATES SHE IS ANXIOUS AND IN PAIN. MD MADE AWARE. NO NEW ORDERS AT THIS TIME.
[2024-09-12] MEDS: ketOROlac 15MG/ML VIAL (15MG/ML) IV ONE (21:05)
[2024-09-12] MEDS: CYCLOBENZAPRINE HCL 10 MG TABLET PO ONE (21:05)
--- NOTE | 2024-09-12 21:43 | NUR ---
SOFT COLLAR APPLIED PER ER MD VERBAL ORDER
[2024-09-12] MEDS ORDERED: CYCL-309 PO (21:44)
[2024-09-12 21:52] VITALS: BP 123/73; PULSE 81; RESP 20; TEMP 98.2; O2SAT 98
== END 2024-09-12 22:08 | disposition home or self-care (01) ==
LOC: EDH 19:15
DX: M54.9 Dorsalgia, unspecified (principal); E11.9 Type 2 diabetes mellitus without complications; E78.00 Pure hypercholesterolemia, unspecified; I10 Essential (primary) hypertension; Z79.01 Long term (current) use of anticoagulants; Z79.890 Hormone replacement therapy; Z79.899 Other long term (current) drug therapy; Z95.1 Presence of aortocoronary bypass graft; Z95.810 Presence of automatic (implantable) cardiac defibrillator; V49.59XA Passenger injured in collision with other motor vehicles in traffic accident, initial encounter; Y93.89 Activity, other specified; Y92.488 Other paved roadways as the place of occurrence of the external cause; Y99.8 Other external cause status
CPT/HCPCS: 99285; 70450; 96374; 85027; 85610; 36415; 72125; 72128; 74176; J1885

== ENCOUNTER → 2024-10-07 | Outpatient (CLI) | payer MEDICAID ==
[~2024-10-07] MED LIST changes: +CYCL-309 PO
[2024-10-07 12:46] LABS: ALBUMIN 3.8 g/dL (3.5-5.0); BILIRUBIN,TOTAL 1.4 mg/dL (0.2-1.0); POTASSIUM 4.3 mmol/L (3.5-5.1); TOTAL PROTEIN, SERUM 8.3 g/dL (6.0-8.3)
== END | disposition home or self-care (01) ==
LOC: LAB 09:50
PROVIDERS: ATTEND Internal Medicine Cardiovascular Disease
DX: I25.5 Ischemic cardiomyopathy (principal); R06.02 Shortness of breath
CPT/HCPCS: 36415; 80053; 83880